=== PATIENT | female | born 1950 | race African-American/Black ===

== ENCOUNTER 2018-12-22 10:03 | Outpatient (CLI) | payer MEDICARE, OTHER ==
[~2018-12-22 10:03] MED LIST: BACTRIM DS TAB1 EAC1 ORAL; CARAFATE SUSP UD1 G1 PO; CELLCEPT250 MG ORAL; COLACE100 MG ORAL; COLACE50 MG ORAL; DEXILANT60 MG ORAL; HUMALOG100 UNIT/4 SUBQ; LABETALOL HCL300 MG ORAL; LANTUS100 UNIT/2 SUBQ; OMEPRAZOLE40 M1 ORAL; PREDNISONE20 MG ORAL; PROCARDIA XL60 MG PO; PROGRAF1 MG ORAL; VALCYTE450 MG ORAL
--- NOTE | 2018-12-22 10:24 | General Progress Note ---
Assessment/Plan Problem List: (1) H/O adenomatous polyp of colon ICD Codes: Z86.010 - Personal history of colonic polyps SNOMED: 419010899 (2) Esophagitis ICD Codes: K20.9 - Esophagitis, unspecified SNOMED: 84721766 (3) Hx of cholecystectomy ICD Codes: Z90.49 - Acquired absence of other specified parts of digestive tract SNOMED: 83297899, [id number] (4) H/O kidney transplant ICD Codes: Z94.0 - Kidney transplant status SNOMED: 50376346, [id number] Assessment/Plan plan EGD and colonoscopy on 01/08 Subjective ROS Limited/Unobtainable: Yes Allergies: Coded Allergies: No Known Allergies (Verified Allergy, Unknown, 12/09/06) Objective General Appearance: alert EENT: normal ENT inspection Neck: supple Cardiovascular: normal rate Respiratory/Chest: lungs clear Abdomen: normal bowel sounds, non tender, soft Extremities: non-tender Jah Perdue MD Dec 22, 2018 10:24
== END 2018-12-22 10:33 | disposition home or self-care (01) ==
LOC: PAN 10:03
DX: K20.9 Esophagitis, unspecified (principal); Z90.49 Acquired absence of other specified parts of digestive tract; Z86.010 Personal history of colon polyps; Z94.0 Kidney transplant status
CPT/HCPCS: 99202

== ENCOUNTER 2019-01-08 08:41 | Day surgery (SDC) | payer MEDICARE, OTHER ==
[2019-01-08] VITALS (7 sets, daily range): BP systolic 164–189; BP diastolic 71–89
[~2019-01-08] VITALS: Ht 152.4 cm; Wt 65.3 kg
[2019-01-08] MEDS ORDERED: NOVOLOG100 UNIT/4 SQ (09:32)
[2019-01-08] MEDS ORDERED: CRESTOR20 MG ORAL (09:32)
[2019-01-08] MEDS ORDERED: ATORVASTATIN CA40 MG ORAL (09:32)
[2019-01-08] MEDS ORDERED: ASPIR 8181 MG ORAL (09:32)
[2019-01-08] MEDS ORDERED: SENSIPAR30 MG ORAL (09:32)
[2019-01-08] MEDS ORDERED: BASAGLAR SQ (09:32)
[2019-01-08] MEDS ORDERED: Lidocaine 1% MPF 10mg/ml 5ml ONE (10:00)
[2019-01-08] MEDS ORDERED: Propofol 200mg/20ml IV ONE (10:00)
[2019-01-08] MEDS ORDERED: LR 1000ml 1,000 ML IVLG SCH (10:08)
[2019-01-08] MEDS ORDERED: Hydromorphone 0.5mg/0.5ml inj IVP PRN (10:15)
[2019-01-08] MEDS ORDERED: Atropine Sulfate 0.4mg/ml inj IVP PRN (10:15)
[2019-01-08] MEDS ORDERED: fentaNYL 100 mcg/2 mL IV PRN (10:15)
[2019-01-08] MEDS ORDERED: HYDROcodone/Acetamin 5/325 tab ORAL PRN (10:15)
[2019-01-08] MEDS ORDERED: Ketorolac 30mg Inj IV PRN ×2 (10:15)
[2019-01-08] MEDS ORDERED: Metoclopramide 10mg/2ml Inj IVP PRN (10:15)
[2019-01-08] MEDS ORDERED: Midazolam 2mg/2ml Inj IVP PRN (10:15)
[2019-01-08] MEDS ORDERED: HYDROcodone/Acetamin 7.5/325 tab ORAL PRN (10:15)
[2019-01-08] MEDS ORDERED: DiphenhydrAMINE 50mg/ml Inj IVP PRN (10:15)
[2019-01-08] MEDS ORDERED: oxyCODONE HCL/Acetaminophen 5/325mg ORAL PRN (10:15)
[2019-01-08] MEDS ORDERED: LORazepam Inj 2mg/ml 1ml IV PRN (10:15)
[2019-01-08] MEDS ORDERED: Meperidine 50mg/ml Inj(FOR RIGORS ONLY) IVP PRN (10:15)
--- NOTE | 2019-01-08 10:22 | Pre-Procedure Note/Attestation ---
Pre-Procedure Note/Attestation Complete Prior to Procedure Planned Procedure: not applicable Procedure Narrative: esophagogastroduodenoscopy and colonoscopy Indications for Procedure Pre-Operative Diagnosis: h/o colon polyps, esophagitis Attestation I attest that I discussed the nature of the procedure; its benefits; risks and complications; and alternatives (and the risks and benefits of such alternatives ), prior to the procedure, with the patient (or the patient's legal employee representative). I attest that, if there was a reasonable possibility of needing a blood transfusion, the patient (or the patient's legal employee representative) was given the [facility] standardized written summary, pursuant to the [place] Blood Safety Act ([place] Health and Safety Code # 1645, as amended). I attest that I re-evaluated the patient just prior to the surgery and that there has been no change in the patient's H&P, except as documented below: Jah Perdue MD Jan 08, 2019 10:22
--- NOTE | 2019-01-08 10:24 | Short Stay Surgery H&P ---
History of Present Illness History of Present Illness Chief Complaint please see recent office note HPI Vita Roberson is a 68 year old female who was admitted on for Colonoscopy Patient History Allergies: Coded Allergies: No Known Allergies (Verified Allergy, Unknown, 12/09/06) Medication History Scheduled Aspirin* (Aspir 81*), 81 MG ORAL DAILY, (Reported) Atorvastatin Calcium* (Atorvastatin Calcium*), 40 MG ORAL BEDTIME, (Reported) Cinacalcet* (Sensipar*), 30 MG ORAL DAILY, (Reported) Docusate Sodium* (Colace*), 100 MG ORAL TWICE A DAY, (Reported) Insulin Aspart (Novolog), 10 UNIT SQ TID, (Reported) Labetalol Hcl* (Normodyne*), 300 MG ORAL EVERY 12 HOURS, (Reported) Mycophenolate Mofetil (Cellcept), 500 MG ORAL EVERY 12 HOURS, (Reported) Omeprazole (Omeprazole), 40 MG ORAL BID, (Reported) Prednisone* (Prednisone*), 5 MG ORAL DAILY, (Reported) Rosuvastatin Calcium* (Crestor*), 20 MG ORAL DAILY, (Reported) Tacrolimus (Prograf), 2 MG ORAL EVERY 12 HOURS, (Reported) [Basaglar], 8 SQ BED, (Reported) Discontinued Medications Insulin Glargine,Hum.rec.anlog (Lantus), 30 SUBQ BEDTIME, (Reported) Discontinued Reason: Pt stopped taking med Insulin Lispro (Humalog), 0 SUBQ QID, (Reported) Discontinued Reason: Pt stopped taking med Trimethoprim/Sulfamethoxazole 160/800* (Bactrim Ds Tablet*), 1 TAB ORAL DAILY, ( Reported) Discontinued Reason: Pt stopped taking med Valganciclovir HCl (Valcyte), 450 MG ORAL DAILY, (Reported) Discontinued Reason: Pt stopped taking med Physical Exam Vital Signs Last Vital Signs Date Time Temp Pulse Resp B/P (MAP) Pulse Ox O2 Delivery O2 Flow Rate FiO2 01/08/19 09:34 Room Air 01/08/19 09:30 98.0 70 20 189/89 99 Plan Attestation Are the patient's medical conditions optimized for surgery? Jah Perdue MD Jan 08, 2019 10:24
--- NOTE | 2019-01-08 10:36 | Anethesia Preoperative Eval ---
Anesthesia Pre-op PMH/ROS General Date of Evaluation: Jan 08, 2019 Time of Evaluation: 09:58 Anesthesiologist: Abdon ASA Score: ASA 3 Mallampati Score Class I : Soft palate, uvula, fauces, pillars visible Class II: Soft palate, uvula, fauces visible Class III: Soft palate, base of uvula visible Class IV: Only hard plate visible Mallampati Classification: Class III Surgeon: Nette Diagnosis: Abd Pain Surgical Procedure: EGD/Colonoscopy Anesthesia History: none Family History: no anesthesia problems Allergies: Coded Allergies: No Known Allergies (Verified Allergy, Unknown, 12/09/06) Medications: see eMAR Patient NPO?: Yes Past Medical History Cardiovascular: Reports: HTN, other - HL Gastrointestinal/Genitourinary: Reports: GERD, ESRD - Renal [place] Endocrine: Reports: DM HEENT: Reports: cataract (L), cataract (R) Other: obesity - BMI 31 Anesthesia Pre-op Phys. Exam Physician Exam Last Vital Signs Date Time Temp Pulse Resp B/P (MAP) Pulse Ox O2 Delivery O2 Flow Rate FiO2 01/08/19 09:34 Room Air 01/08/19 09:30 98.0 70 20 189/89 99 Constitutional: NAD Neurologic: CN 2-12 intact Cardiovascular: RRR Respiratory: CTA Gastrointestinal: S/NT/ND Airway Exam Mallampati Score: Class III MO: limited ROM: limited Teeth: missing, intact Anesthesia Pre-op A/P Risk Assessment & Plan Assessment: ASA 3 Plan: GA Status Change Before Surgery: Chino Lira MD Jan 08, 2019 10:36
--- NOTE | 2019-01-08 10:40 | Immediate Post-Op Evaluation ---
Immediate Post-Op Evalulation Immediate Post-Op Evalulation Procedure: EGD/Colonoscopy Date of Evaluation: Jan 08, 2019 Time of Evaluation: 11:38 IV Fluids: 300 NS Blood Products: 0 Estimated Blood Loss: 7 Urinary Output: 0 Blood Pressure Systolic: 159 Blood Pressure Diastolic: 73 Pulse Rate: 76 Respiratory Rate: 16 O2 Sat by Pulse Oximetry: 100 Temperature (Fahrenheit): 99.4 Pain Score (1-10): 1 Nausea: No Vomiting: No Complications 0 Patient Status: awake, reacts, patent, none Hydration Status: adequate Chino Villarreal MD Jan 08, 2019 10:40
--- NOTE | 2019-01-08 10:42 | 48 Hour Post Anesthesia Eval ---
Post Anesthesia Evaluation Procedure: EGD/Colonoscopy Date of Evaluation: Jan 08, 2019 Time of Evaluation: 13:42 Blood Pressure Systolic: 181 0: 87 Pulse Rate: 94 Respiratory Rate: 16 Temperature (Fahrenheit): 99.4 O2 Sat by Pulse Oximetry: 100 Airway: patent Nausea: No Vomiting: No Pain Intensity: 1 Hydration Status: adequate Cardiopulmonary Status: Stable Mental Status/LOC: patient returned to baseline Follow-up Care/Observations: 0 Post-Anesthesia Complications: 0 Follow-up care needed: ready to discharge Chino Villarreal MD Jan 08, 2019 10:42
--- NOTE | 2019-01-08 11:10 | Endoscopy Procedure Note ---
Endoscopy Procedure Note General Indication for Procedure: screening colon, h/o colon polyps, GERD Procedures Performed: EGD, colonoscopy Operative Findings/Diagnosis: esop ulcer, 2 colon polyps Specimen: yes Pt Tolerated Procedure Well: Yes Estimated Blood Loss: none Anesthesia Anesthesiologist: zackery Anesthesia: MAC Inserted Devices Implant(s) used?: No Quality Quality of Bowel Preparation: Fair Did scope reach the cecum?: Yes Was there any complications?: No GI Core Measures 50 yrs or older w/o bx or poly: No 10yrs. F/U not recommended: Yes If not recommended, why?: Above average risk 10 yrs. F/U needed: Yes 18 years or older w/prev. colo: Yes <3yrs. since last colonoscopy: No Jah Perdue MD Jan 08, 2019 11:10
--- NOTE | 2019-01-08 18:15 | Procedure Note ---
DATE OF PROCEDURE: 01/08/2019 SURGEON: Jah Perdue M.D. PROCEDURE: Upper endoscopy with biopsy and colonoscopy with snare polypectomy and biopsy. ANESTHESIA: Per Dr. Villarreal. INSTRUMENT: Olympus adult flexible upper endoscope and colonoscope. REASON FOR PROCEDURE: The procedure, risks, benefits, and possible consequences, including hemorrhage, aspiration, perforation and infection, and alternative treatments, were explained to the patient/legal guardian by Dr. Jah Perdue and the patient/legal guardian understood and accepted these risks. INDICATION: Screening colonoscopy, history of colonic polyps, chronic GERD, history of esophagitis. DESCRIPTION OF PROCEDURE: After informed consent was obtained and the patient was adequately sedated, Olympus upper endoscope was advanced from mouth to the second portion of duodenum and retroflexion was performed in the stomach. The patient had an ulcer in the distal esophagus over a cm I would say about maybe 1.5 cm ulcer in the distal esophagus. Biopsy from this also was obtained to rule out malignancy. In the stomach, evidence of diffuse atrophic gastritis mild. Biopsy from antrum and body was obtained to rule out H. pylori infection. At this time, the upper endoscope was retrieved. The patient was turned over for colonoscopy. First, rectal exam was performed, which was normal. Then, the scope was advanced from the rectum into the cecum documented by appendiceal orifice, ileocecal valve, and right upper quadrant palpation. Quality of prep was fair. The patient had evidence of scattered diverticulosis in the left colon. The patient had 2 polyps, 1 measured about 1.1 cm, sessile, removed from the rectum using a hot snare polypectomy. Another polyp was small, was in transverse, removed with cold biopsy forceps technique. Retroflexion of rectum showed evidence of internal hemorrhoids. SUMMARY OF FINDINGS: 1. Distal esophageal ulcer. 2. Atrophic gastritis, status post biopsy. 3. Two colonic polyps removed, see above for details. 4. Diverticulosis. RECOMMENDATIONS: 1. Follow up pathology. 2. The patient to be on PPI daily given the esophageal ulceration. 3. We will recommend repeat colonoscopy in 3 years given the size of polyp was over a cm and also this quality of prep was not 100% clear. I want to thank, Dr. Torre, for this kind referral. Jah Ellen Perdue DR: MARIELA JOB#: [id number] CC: Brooke Torre M.D.; Fax#: [phone]
== END 2019-01-08 13:00 | disposition home or self-care (01) ==
LOC: GAS 08:41
DX: Z12.11 Encounter for screening for malignant neoplasm of colon (principal); K21.9 Gastro-esophageal reflux disease without esophagitis; K57.90 Diverticulosis of intestine, part unspecified, without perforation or abscess without bleeding; K22.10 Ulcer of esophagus without bleeding; K29.70 Gastritis, unspecified, without bleeding; K63.5 Polyp of colon; Z79.82 Long term (current) use of aspirin
CPT/HCPCS: 43239; 45385; 82962; 93005; J2704; 94003; 94150